=== PATIENT | male | born 1985 | race Caucasian/White ===

== ENCOUNTER 2020-06-06 22:16 | Emergency (ER) | payer MEDICAID, OTHER ==
[~2020-06-06] VITALS: Ht 175.3 cm; Wt 65.0 kg
[2020-06-06 22:21] VITALS: BP 121/71
[2020-06-06] MEDS ORDERED: LIDOCAINE-MPF 1%, 5ML ONE (22:57)
[2020-06-06] MEDS ORDERED: LIDOCAINE-MPF 1%, 5ML INFIL ONE (23:00)
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
[2020-06-07] MEDS ORDERED: NEOSPORIN OINT. PKT 1 PACKET ONE (00:18)
[2020-06-07] MEDS ORDERED: LIDOCAINE-MPF 1%, 5ML ONE ×2 (00:18→00:28)
--- NOTE | 2020-06-07 00:52 | NUR ---
REPORT GIVEN TO CLAUDIA HAM.
== END 2020-06-07 01:08 | disposition home or self-care (01) ==
LOC: ED 22:52
DX: S01.511A Laceration without foreign body of lip, initial encounter (principal); Y08.89XA Assault by other specified means, initial encounter; Y93.89 Activity, other specified; Y92.89 Other specified places as the place of occurrence of the external cause; Y99.8 Other external cause status
CPT/HCPCS: 12052; 99285

== ENCOUNTER 2020-06-16 08:09 | Emergency (ER) | payer MEDICAID, OTHER ==
[~2020-06-16] VITALS: Ht 172.7 cm; Wt 63.0 kg
[2020-06-16 08:14] VITALS: BP 110/64
[2020-06-16] MEDS ORDERED: NEOSPORIN OINT. PKT 1 PACKET ONE (08:26)
--- NOTE | 2020-06-16 08:28 | NUR ---
SUTURES REMOVED, NO IV TO DC. REVIEWED DC INSTRUCTIONS WITH PT, UNDERSTANDING VERBALIZED. PT LEFT AMB, GAIT STEADY
== END 2020-06-16 08:30 | disposition home or self-care (01) ==
LOC: ED 08:27
DX: S01.511D Laceration without foreign body of lip, subsequent encounter (principal); Z48.02 Encounter for removal of sutures; X58.XXXD Exposure to other specified factors, subsequent encounter
CPT/HCPCS: 99281